=== PATIENT | male | born 1985 | race African-American/Black ===

== ENCOUNTER 2018-11-02 18:53 | Emergency (ER) | payer MEDICAID, OTHER ==
[~2018-11-02] VITALS: Ht 180.3 cm; Wt 63.5 kg
[~2018-11-02 18:53] MED LIST: UNOBMED
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
[2018-11-02] MEDS ORDERED: LORazepam Inj 2mg/ml 1ml IV ONE (19:00)
[2018-11-02 19:10] VITALS: BP 132/80
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
--- NOTE | 2018-11-02 19:11 | NUR ---
ED Nurse Note: Stephania (finance) at bedside
--- NOTE | 2018-11-02 19:11 | NUR ---
ED Nurse Note: PT PLACED ON SEIZURE PRECAUTIONS, LOWEST BED RAIL POSITION, X2 SIDERAILS, SIDERILS PADDED. PT PALCED ON MONITOR.
--- NOTE | 2018-11-02 19:37 | Diagnostic Imaging Report ---
Indication: Seizure Technique: Contiguous 5 mm thick transaxial imaging of the head obtained in a Siemens Sensation [address] scanner. Soft tissue and bone windows generated. Automatic Exposure Control was utilized. Total Dose length Product (DLP): 1446.[address] Dose Index Volume (CTDIvol): 70.38 mGy Comparison: 03/10/2018 Findings: Large craniectomy involving the right cranial vault demonstrated with overlying implanted prosthesis overlying the craniectomy. Encephalomalacia of much of the right cerebrum again noted with dystrophic calcification. Ex vacuo dilatation of the right lateral ventricle noted. These findings are unchanged. There is no mass effect or edema appreciated. There is no evidence of acute hemorrhage. The basal cisterns appear normal. IMPRESSION: Large right craniectomy and underlying encephalomalacia unchanged from previous study. No mass effect or edema or evidence of acute intracranial hemorrhage. No significant change. [facility] has communicated the preliminary results to the Emergency Department. Their findings are largely concordant with this report. The CT scanner at [facility] is accredited by the [employer] and the scans are performed using dose optimization techniques as appropriate to a performed exam including Automatic Exposure control.
[2018-11-02 19:41] LABS: ANION GAP 5 mmol/L (5-15); BASOPHILS % (AUTO) 1.1 % (0.0-2.0); BLOOD UREA NITROGEN 8 mg/dL (7-18); CARBON DIOXIDE 30 MMOL/L (21-32); CHLORIDE 107 MMOL/L (98-107); CREATININE 1.2 MG/DL (0.55-1.30); EOSINOPHILS % (AUTO) 1.9 % (0.0-3.0); HEMOGLOBIN 11.6 G/DL (14.2-18.0); LYMPHOCYTES % (AUTO) 32.1 % (20.0-45.0); MEAN CORPUSCULAR VOLUME 81 FL (80-99); MONOCYTES % (AUTO) 6.5 % (1.0-10.0); NEUTROPHILS % (AUTO) 58.4 % (45.0-75.0); PLATELET COUNT 173 K/UL (150-450); POTASSIUM 3.6 MMOL/L (3.5-5.1); RED BLOOD COUNT 4.84 M/UL (4.70-6.10); RED CELL DISTRIBUTION WIDTH 13.4 % (11.6-14.8); SODIUM 142 MMOL/L (136-145)
[2018-11-02 19:43] LABS: HEMATOCRIT 38.2 % (42.0-52.0)
[2018-11-02 19:46] LABS: ALANINE AMINOTRANSFERASE 14 U/L (12-78); ALBUMIN/GLOBULIN RATIO 1.5 (1.0-2.7); ALKALINE PHOSPHATASE 62 U/L (46-116); ASPARTATE AMINO TRANSFERASE 14 U/L (15-37); BILIRUBIN,TOTAL 0.3 MG/DL (0.2-1.0); CREATINE KINASE 266 U/L (26-308)
[2018-11-02 19:49] LABS: APPEARANCE,URINE CLEAR; BILIRUBIN, URINE NEGATIVE (NEGATIVE); COLOR,URINE PALE YELLOW; GLUCOSE, URINE (UA) NEGATIVE (NEGATIVE); KETONES,URINE NEGATIVE (NEGATIVE); LEUKOCYTE ESTERASE ,URINE 1+ (NEGATIVE); NITRITE,URINE NEGATIVE (NEGATIVE); PH,URINE 7 (4.5-8.0); PROTEIN,URINE NEGATIVE (NEGATIVE); UROBILINOGEN,URINE NORMAL MG/DL (0.0-1.0)
--- NOTE | 2018-11-02 20:40 | NUR ---
ED Nurse Note: PT WAS PROVIDED CHAD WITH [facility] APPROVAL. PT WAS ALSO GIVEN EXTRA BLANKET
[2018-11-02] MEDS ORDERED: VALPROIC ACID250 MG PO (22:43)
[2018-11-02 23:00] VITALS: BP 124/73
--- NOTE | 2018-11-02 23:00 | NUR ---
ER DISCHARGE NOTE: Patient is cleared to be discharged per ERMD, pt is aox4, on room air, with stable vital signs. pt was given dc and prescription instructions, pt was able to verbalize understanding, pt id band and iv site removed without complications. pt is able to ambulate with steady gait. pt took all belongings.
--- NOTE | 2018-11-03 11:40 | Diagnostic Imaging Report ---
Indication: Dyspnea Comparison: None A single view chest radiograph was obtained. Findings: Cardiomediastinal appearance is within normal limits for age. The lungs are clear. Pulmonary vascularity is appropriate. The diaphragmatic contour is smooth and costophrenic angles are sharp. No pleural effusions are identified. The bones are unremarkable. Impression: No acute findings
--- NOTE | 2018-11-04 20:32 | Cardiology Report ---
APPROVED REPORT EKG Measurement Heart [id number] Normal sinus rhythm Nonspecific T wave abnormality Abnormal ECG
== END 2018-11-02 23:00 | disposition home or self-care (01) ==
LOC: EDBD 18:53 → EMR 19:01
DX: R56.1 Post traumatic seizures (principal); F32.89 Other specified depressive episodes; F12.90 Cannabis use, unspecified, uncomplicated
CPT/HCPCS: 36415; 70450; 71045; 80053; 80299; 81003; 82550; 82962; 84484; 85025; 93005; 96361; 96374; 99284

== ENCOUNTER 2019-01-01 07:13 | Emergency (ER) | payer MEDICAID ==
[~2019-01-01] VITALS: Ht 175.3 cm; Wt 63.5 kg
[~2019-01-01 07:13] MED LIST changes: +VALPROIC ACID250 MG PO
[2019-01-01] MEDS ORDERED: KEPPRA1000 MG ORAL ×2 (07:22→07:40)
--- NOTE | 2019-01-01 07:28 | NUR ---
ED Nurse Note: Pt walked in due to seizure x 4 days and last episode an hour ago. Pt ran out of keppra 1000mg for 4 days. Pt c/o left side headache with no physical trauma. AAO x4, ambulates with steady gait with non labored breathing.
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
[2019-01-01] MEDS ORDERED: DEPAKENE250 MG ORAL (07:40)
[2019-01-01 07:45] VITALS: BP_SYST 132; BP_SYST 135; BP_DIAS 70; BP_DIAS 75
--- NOTE | 2019-01-01 07:45 | NUR ---
ER DISCHARGE NOTE: Patient is cleared to be discharged per ERMD, pt is aox4, on room air, with stable vital signs. pt was given dc and prescription instructions, pt was able to verbalize understanding, pt id band removed. pt is able to ambulate with steady gait. pt took all belongings.
== END 2019-01-01 07:45 | disposition home or self-care (01) ==
LOC: EMR 07:32
DX: G40.909 Epilepsy, unspecified, not intractable, without status epilepticus (principal); F19.10 Other psychoactive substance abuse, uncomplicated
CPT/HCPCS: 80299; Z7502; 99282

== ENCOUNTER 2019-01-30 23:47 | Emergency (ER) | payer MEDICAID ==
[~2019-01-30] VITALS: Ht 177.8 cm; Wt 65.8 kg
[~2019-01-30 23:47] MED LIST changes: +DEPAKENE250 MG ORAL; +KEPPRA1000 MG ORAL
[2019-01-31 00:01] VITALS: BP 128/78
--- NOTE | 2019-01-31 00:02 | NUR ---
ED Nurse Note: pt walked in to ED C/O "partial Seizure". pt states he normally takes keppra 1000mg PO BID but has not been taking it for the last 4 days. Pt stated he has been having epiode of stiffness and feeling of having seizueres. pt is alet x4. VSS Addendum: 01/31/19 at 0020 by SERGIO ED Nurse Note: pt walked in to ED C/O "partial Seizure". pt states he normally takes keppra 1000mg PO BID but has not been taking it for the last 4 days. Pt stated he has been having episode of stiffness and feeling of having seizueres. pt is alert x4. VSS
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
--- NOTE | 2019-01-31 01:40 | NUR ---
ED Nurse Note: pt in bed resting. no acute distress is noted. VSS
[2019-01-31 01:58] VITALS: BP 106/71
[2019-01-31 02:47] VITALS: BP 108/80
--- NOTE | 2019-01-31 02:47 | NUR ---
ER DISCHARGE NOTE: Patient is cleared to be discharged per ERMD, pt is aox4, on room air, with stable vital signs. pt was given dc instructions, pt was able to verbalize understanding, pt id band removed without complications. pt is able to ambulate with steady gait. pt took all belongings.
== END 2019-01-31 02:47 | disposition home or self-care (01) ==
LOC: EMR 23:59
DX: R51 Headache (principal); I10 Essential (primary) hypertension
CPT/HCPCS: 99282

== ENCOUNTER 2019-02-19 01:38 | Emergency (ER) | payer MEDICAID ==
[~2019-02-19] VITALS: Ht 175.3 cm; Wt 63.5 kg
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
[2019-02-19 02:26] VITALS: BP 140/84
[2019-02-19] MEDS ORDERED: levETIRAcetam 1,000mg/NS100ml 100 ML IVPB ONE (02:30)
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
[2019-02-19] MEDS ORDERED: IBUPROFEN600 MG ORAL (03:54)
[2019-02-19] MEDS ORDERED: KEPPRA1000 MG ORAL (03:54)
[2019-02-19 04:03] VITALS: BP 145/84
== END 2019-02-19 04:11 | disposition home or self-care (01) ==
LOC: EMR 02:12
DX: S09.90XA Unspecified injury of head, initial encounter (principal); G40.109 Localization-related (focal) (partial) symptomatic epilepsy and epileptic syndromes with simple partial seizures, not intractable, without status epilepticus; I10 Essential (primary) hypertension; Y04.2XXA Assault by strike against or bumped into by another person, initial encounter; Y93.9 Activity, unspecified; Y92.9 Unspecified place or not applicable; Z98.890 Other specified postprocedural states
CPT/HCPCS: 70450; J1953; Z7502; 99284

== ENCOUNTER 2019-06-30 12:05 | Emergency (ER) | payer MEDICAID ==
[~2019-06-30] VITALS: Ht 177.8 cm; Wt 63.5 kg
[~2019-06-30 12:05] MED LIST changes: +Depakote ER 250mg tab ORAL ONE; +IBUPROFEN600 MG ORAL; +levETIRAcetam 1,000mg/NS100ml 100 ML IVPB ONE
[2019-06-30] MEDS ORDERED: Depakote ER 250mg tab ORAL ONE (12:09)
[2019-06-30] MEDS ORDERED: levETIRAcetam 1,000mg/NS100ml 100 ML IVPB ONE (12:10)
[2019-06-30 12:17] VITALS: BP 129/88
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
[2019-06-30] MEDS ORDERED: DEPAKOTE ER250 MG ORAL (12:30)
[2019-06-30] MEDS ORDERED: KEPPRA1000 MG ORAL (12:30)
[2019-06-30 12:45] VITALS: BP 129/88
--- NOTE | 2019-06-30 12:45 | NUR ---
ER DISCHARGE NOTE: Patient is cleared to be discharged per Dr. Davenport, pt is aox4, on room air, with stable vital signs. pt was given dc and prescription instructions, pt was able to verbalize understanding, pt id band and iv site removed without complications. pt is able to ambulate with steady gait. pt took all belongings.
== END 2019-06-30 12:45 | disposition home or self-care (01) ==
LOC: EDBD 12:05 → EMR 12:36
DX: G40.909 Epilepsy, unspecified, not intractable, without status epilepticus (principal); Z91.14 Patient's other noncompliance with medication regimen; I10 Essential (primary) hypertension
CPT/HCPCS: 96374; J1953; Z7502; 99284

== ENCOUNTER 2019-10-10 20:38 | Emergency (ER) | payer MEDICAID ==
[~2019-10-10] VITALS: Ht 177.8 cm; Wt 68.0 kg
[~2019-10-10 20:38] MED LIST changes: +DEPAKOTE ER250 MG ORAL; -Depakote ER 250mg tab ORAL ONE; -levETIRAcetam 1,000mg/NS100ml 100 ML IVPB ONE
[2019-10-10] MEDS ORDERED: levETIRAcetam 500mg/NS100ml 110 ML IV ONE (21:00)
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
[2019-10-10 21:40] LABS: ANION GAP 8 mmol/L (5-15); BLOOD UREA NITROGEN 10 mg/dL (7-18); CALCIUM 8.7 MG/DL (8.5-10.1); CARBON DIOXIDE 31 MMOL/L (21-32); CHLORIDE 105 MMOL/L (98-107); CREATININE 1.2 MG/DL (0.55-1.30); POTASSIUM 4.5 MMOL/L (3.5-5.1); SODIUM 143 MMOL/L (136-145)
[2019-10-10 21:43] LABS: BASOPHILS % (AUTO) 1.8 % (0.0-2.0); EOSINOPHILS % (AUTO) 2.7 % (0.0-3.0); HEMATOCRIT 38.3 % (42.0-52.0); HEMOGLOBIN 11.6 G/DL (14.2-18.0); LYMPHOCYTES % (AUTO) 38.5 % (20.0-45.0); MEAN CORPUSCULAR VOLUME 80 FL (80-99); MONOCYTES % (AUTO) 7.7 % (1.0-10.0); NEUTROPHILS % (AUTO) 49.3 % (45.0-75.0); PLATELET COUNT 131 K/UL (150-450); RED BLOOD COUNT 4.77 M/UL (4.70-6.10); WHITE BLOOD COUNT 6.1 K/UL (4.8-10.8)
[2019-10-10 21:45] LABS: ALANINE AMINOTRANSFERASE 24 U/L (12-78); ALBUMIN 3.6 G/DL (3.4-5.0); ALBUMIN/GLOBULIN RATIO 1.1 (1.0-2.7); ALKALINE PHOSPHATASE 82 U/L (46-116); ASPARTATE AMINO TRANSFERASE 39 U/L (15-37); BILIRUBIN,TOTAL 0.2 MG/DL (0.2-1.0); CREATINE KINASE 530 U/L (26-308)
--- NOTE | 2019-10-10 21:53 | Diagnostic Imaging Report ---
EXAM: XR Chest, 1 View CLINICAL HISTORY: SZ TECHNIQUE: Frontal view of the chest. COMPARISON: 11/02/18 FINDINGS: Lungs: Unremarkable. No consolidation. Pleural space: Unremarkable. No pneumothorax. Heart: Unremarkable. No cardiomegaly. Mediastinum: Unremarkable. Bones/joints: Unremarkable. IMPRESSION: 1. No acute cardiopulmonary disease. 2. If there is continued concern recommend frontal and lateral chest radiographs or CT.
[2019-10-10] MEDS ORDERED: Depakote 500mg tab ORAL ONE (23:00)
[2019-10-10 23:15] VITALS: BP 120/69
[2019-10-10] MEDS ORDERED: DEPAKOTE250 MG PO (23:18)
[2019-10-10 23:30] VITALS: BP 120/69
== END 2019-10-10 23:30 | disposition home or self-care (01) ==
LOC: EMR 21:00
DX: G40.909 Epilepsy, unspecified, not intractable, without status epilepticus (principal); Z91.14 Patient's other noncompliance with medication regimen; I10 Essential (primary) hypertension; S09.90XD Unspecified injury of head, subsequent encounter; W34.00XD Accidental discharge from unspecified firearms or gun, subsequent encounter; F17.200 Nicotine dependence, unspecified, uncomplicated
CPT/HCPCS: 36415; 71045; 80053; 80164; 82550; 82962; 84484; 85025; 93005; 96361; 96374; G0480; J1953; J7030; Z7502; 99284

== ENCOUNTER 2019-10-13 06:25 | Emergency (ER) | payer MEDICAID ==
[~2019-10-13] VITALS: Ht 175.3 cm; Wt 68.0 kg
[~2019-10-13 06:25] MED LIST changes: +DEPAKOTE250 MG PO
[2019-10-13 06:27] VITALS: BP 125/95
[2019-10-13] MEDS ORDERED: KEPPRA500 M4 ORAL ×2 (06:54→14:05)
--- NOTE | 2019-10-13 06:55 | NUR ---
ED Nurse Note: WAlk-in patient with complaints of recurrent sezisures despite medication regimen. Patient was seen at another hospital yesterday and left before discharge. Patient returned today with reports of seizure, unwitnessed for 15 minutes. Will continue to monitor for discharge.
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
[2019-10-13 06:59] VITALS: BP 125/95
--- NOTE | 2019-10-13 07:00 | NUR ---
ER DISCHARGE NOTE: Patient is cleared to be discharged per ERMD, pt is aox4, on room air, with stable vital signs. pt was given dc and prescription instructions, pt was able to verbalize understanding, pt id band removed and patient tolerated medication administration well. Patient departed with all belongings.
== END 2019-10-13 07:01 | disposition home or self-care (01) ==
LOC: EMR 06:53
DX: Z76.0 Encounter for issue of repeat prescription (principal); G40.909 Epilepsy, unspecified, not intractable, without status epilepticus; I10 Essential (primary) hypertension
CPT/HCPCS: 99282

== ENCOUNTER 2019-10-29 22:32 | Emergency (ER) | payer MEDICAID ==
[~2019-10-29] VITALS: Ht 175.3 cm; Wt 68.0 kg
[~2019-10-29 22:32] MED LIST changes: +KEPPRA500 M4 ORAL
[2019-10-29 22:45] VITALS: BP 124/76
[2019-10-29] MEDS ORDERED: KEPPRA1000 MG ORAL (22:55)
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
[2019-10-29] MEDS ORDERED: levETIRAcetam 1,000mg/NS100ml 100 ML IVPB ONE (23:00)
[2019-10-29] MEDS ORDERED: Acetaminophen 500mg (ES) tab ORAL ONE (23:45)
[2019-10-29 23:50] VITALS: BP 120/70
== END 2019-10-29 23:50 | disposition home or self-care (01) ==
LOC: EMR 23:00
DX: G40.909 Epilepsy, unspecified, not intractable, without status epilepticus (principal); S09.90XA Unspecified injury of head, initial encounter; Z91.14 Patient's other noncompliance with medication regimen; Y04.2XXA Assault by strike against or bumped into by another person, initial encounter; Y92.9 Unspecified place or not applicable
CPT/HCPCS: 96374; J1953; Z7502; 99284

== ENCOUNTER 2019-11-08 15:17 | Emergency (ER) | payer MEDICAID ==
[~2019-11-08] VITALS: Ht 177.8 cm; Wt 68.0 kg
[2019-11-08 15:30] VITALS: BP 117/75
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
[2019-11-08 16:24] VITALS: BP_SYST 108; BP_SYST 114; BP_SYST 120; BP_DIAS 59; BP_DIAS 70; BP_DIAS 77
[2019-11-08 16:36] LABS: ANION GAP 5 mmol/L (5-15); BLOOD UREA NITROGEN 14 mg/dL (7-18); CALCIUM 9.1 MG/DL (8.5-10.1); CARBON DIOXIDE 30 MMOL/L (21-32); CHLORIDE 103 MMOL/L (98-107); CREATININE 1.1 MG/DL (0.55-1.30); SODIUM 138 MMOL/L (136-145)
[2019-11-08 16:44] LABS: HEMATOCRIT 43.6 % (42.0-52.0); HEMOGLOBIN 12.8 G/DL (14.2-18.0); MEAN CORPUSCULAR VOLUME 81 FL (80-99); PLATELET COUNT 95 K/UL (150-450); RED BLOOD COUNT 5.36 M/UL (4.70-6.10); RED CELL DISTRIBUTION WIDTH 13.8 % (11.6-14.8); WHITE BLOOD COUNT 6.4 K/UL (4.8-10.8)
--- NOTE | 2019-11-08 17:43 | Diagnostic Imaging Report ---
EXAM: CT Head Without Intravenous Contrast CLINICAL HISTORY: SYNCOPE TECHNIQUE: Axial computed tomography images of the head/brain without intravenous contrast. CTDI is 53.4 mGy and DLP is 1045.5 mGy-cm. One or more of the following dose reduction techniques were used: automated exposure control, adjustment of the mA and/or kV according to patient size, use of iterative reconstruction technique. COMPARISON: CT head on 02/19/2019 FINDINGS: Brain: No acute infarct or hemorrhage. Stable encephalomalacia along the peripheral right cerebral hemisphere. Stable rightward midline shift measuring 6 mm. Ventricles and sulci: Stable ex vacuo dilatation of the right lateral ventricle. No ventriculomegaly or intraventricular hemorrhage. Bones: Right-sided cranioplasty changes. Subcutaneous tissues: Normal. Sinuses: Normal. No air-fluid levels or mucosal thickening. Mastoid air cells: Normal. Orbits: Grossly unremarkable. Other: Cerumen in the external auditory canals. IMPRESSION: 1. No acute intracranial abnormality. 2. Stable encephalomalacia along the peripheral right cerebral hemisphere. Stable rightward midline shift measuring 6 mm. Stable right- sided cranioplasty changes.
[2019-11-08] MEDS ORDERED: TYLENOL EXTRA500 MG ORAL (17:51)
[2019-11-08 18:02] VITALS: BP 124/81
--- NOTE | 2019-11-08 18:03 | NUR ---
ER DISCHARGE NOTE: Patient is cleared to be discharged per ERMD, pt is aox4, on room air, with stable vital signs. pt was given dc instructions, pt was able to verbalize understanding, pt id band and iv site removed without complications. pt is able to ambulate with steady gait. pt took all belongings.
== END 2019-11-08 18:03 | disposition home or self-care (01) ==
LOC: EMR 15:33
DX: R55 Syncope and collapse (principal); R51 Headache; G40.909 Epilepsy, unspecified, not intractable, without status epilepticus; G93.89 Other specified disorders of brain
CPT/HCPCS: 36415; 70450; 80048; 82962; 85007; 85025; 93005; 96360; Z7502; 99284

== ENCOUNTER 2020-02-02 07:41 | Emergency (ER) | payer MEDICAID ==
[~2020-02-02] VITALS: Ht 175.3 cm; Wt 59.0 kg
[~2020-02-02 07:41] MED LIST changes: +TYLENOL EXTRA500 MG ORAL
--- NOTE | 2020-02-02 07:58 | NUR ---
ED Nurse Note: Pt ambulated to ed c/o "seizure withdrawals". Pt reports taking keppra and is insistant that it is the incorrect dose, pt denies use of other drugs. Pt states that he was given a prescription and states that he did not get it refilled.
[2020-02-02 08:00] VITALS: BP 120/80
[2020-02-02] MEDS ORDERED: KEPPRA1000 MG ORAL (08:06)
[2020-02-02] MEDS ORDERED: ATIVAN1 MG ORAL (08:06)
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
== END 2020-02-02 08:10 | disposition other institution (70) ==
LOC: EMR 08:10
DX: G40.909 Epilepsy, unspecified, not intractable, without status epilepticus (principal); Z76.0 Encounter for issue of repeat prescription; F15.90 Other stimulant use, unspecified, uncomplicated
CPT/HCPCS: 99282

== ENCOUNTER 2020-02-10 07:44 | Emergency (ER) | payer MEDICAID ==
[~2020-02-10] VITALS: Ht 177.8 cm; Wt 68.9 kg
[~2020-02-10 07:44] MED LIST changes: +ATIVAN1 MG ORAL
--- NOTE | 2020-02-10 08:11 | NUR ---
ED Nurse Note: PT walked in to ed stating he had a seizure lasting 6 min. seizure activity was unwitnessed. pt is on keppra 1000mgBID but has not been taking it for the last 2 days. he also states he is having come down/ withdrawl from meth.
[2020-02-10 08:14] VITALS: BP 121/87
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
[2020-02-10] MEDS ORDERED: KEPPRA1000 MG ORAL (09:36)
--- NOTE | 2020-02-10 09:39 | NUR ---
ED Nurse Note: offered keppra but pt refused, risk and benefits explained. pt verbalized understanding. pt states he will take it but just not now. ERMD aware.
[2020-02-10 09:46] VITALS: BP 125/84
--- NOTE | 2020-02-10 09:46 | NUR ---
ER DISCHARGE NOTE: Patient is cleared to be discharged per ERMD, pt is aox4, on room air, with stable vital signs. pt was given dc and prescription instructions, pt was able to verbalize understanding, pt id band removed without complications. pt is able to ambulate with steady gait. pt took all belongings.
== END 2020-02-10 09:46 | disposition home or self-care (01) ==
LOC: EMR 08:19
DX: G40.909 Epilepsy, unspecified, not intractable, without status epilepticus (principal)
CPT/HCPCS: 99282